=== PATIENT | male | born 1985 | race Caucasian/White ===

== ENCOUNTER 2022-10-12 02:56 | Emergency (ER) | payer SELFPAY ==
[2022-10-12] MEDS ORDERED: NA CHLORIDE 0.9% 1,000 ML ONE (03:13)
[2022-10-12] MEDS ORDERED: ASPIRIN 81 MG CHEWABLE TABLET ONE (03:13)
[2022-10-12] MEDS ORDERED: METOPROLOL TAR 50 MG TAB ONE (03:13)
[2022-10-12 03:28] LABS: Protime INR 1.05
[2022-10-12 03:34] LABS: Absolute Lymphocytes (CBC) 2.3 K/uL (0.7-4.9); Hematocrit 45.1 % (39.6-49.0); Lymphocytes % 23.1 % (15.3-44.8); MCV 87.2 fL (80-100); MPV 7.9 fL (7.6-11.3); RBC Red Blood Cell Count 5.17 M/uL (4.33-5.43)
[2022-10-12 03:49] LABS: Albumin 3.9 g/dL (3.4-5.0); Bilirubin Direct 0.1 mg/dL (0-0.2); Bilirubin Total 0.3 mg/dL (0.2-1.0); Magnesium 1.8 mg/dL (1.6-2.4); Protein, Total 7.7 g/dL (6.4-8.2); Troponin High Sensitivity 6.4 pg/mL (<58.9)
[2022-10-12 03:51] LABS: Potassium 2.6 mmol/L (3.5-5.1)
[2022-10-12] MEDS ORDERED: HYDRALAZINE HCL 20 MG/ML VIAL ONE (03:56)
[2022-10-12] MEDS ORDERED: MORPHINE 4 MG/ML SYR ONE (03:56)
[2022-10-12] MEDS ORDERED: ONDANSETRON 4 MG/2 ML VIAL ONE (03:57)
[2022-10-12] MEDS ORDERED: AMLODIPINE 10 MG TAB ONE (03:57)
[2022-10-12] MEDS ORDERED: HYDRALAZINE HCL 25 MG TABLET ONE (03:57)
[2022-10-12 04:01] LABS: Barbiturates NEGATIVE (NEGATIVE); Benzodiazepines NEGATIVE (NEGATIVE); Cocaine NEGATIVE (NEGATIVE); METHAMPHETAM POSITIVE (NEGATIVE); Methadone NEGATIVE (NEGATIVE); Opiates NEGATIVE (NEGATIVE); Phencyclidine NEGATIVE (NEGATIVE); THC Cannibis NEGATIVE (NEGATIVE)
[2022-10-12] MEDS ORDERED: LORazepam 2 MG/ML VIAL ONE (04:14)
[2022-10-12] MEDS ORDERED: NS KCL 20MEQ 1,000 ML IV ONE (04:15)
[2022-10-12] MEDS ORDERED: FAMOTIDINE 20 MG/2 ML VIAL IV ONE (04:15)
[2022-10-12] MEDS ORDERED: POTASSIUM 25 MEQ EFFERV TAB ONE ×2 (04:15→05:14)
[2022-10-12 04:38] LABS: SARS-CoV-2 Antigen Rapid Res Negative (Negative)
--- NOTE | 2022-10-12 06:22 | EDPHYS ---
Physician Documentation [facility] Name: Mars Contreras Age: 37 yrs Sex: Male : 1985 Arrival Date: 10/12/2022 Time: 02:57 Bed 4 Private MD: ISATU Physician Oscar Dickens HPI: 10/12 03:47 This 37 yrs old Male presents to ER via EMS with complaints of CHEST PAIN AND manpreet HTN. 03:47 The patient or guardian reports chest pain that is located primarily in the substernal manpreet area, anterior chest wall, bilaterally. OUT OF BP MEDS. The pain does not radiate. Onset: The symptoms/episode began/occurred just prior to arrival, today. Associated signs and symptoms: Pertinent positives: dizziness, lightheadedness. The chest pain is described as a pressure, squeezing. Duration: The patient or guardian reports multiple episodes. Modifying factors: The symptoms are alleviated by nothing. the symptoms are aggravated by nothing. Severity of pain: At its worst the pain was mild moderate in the emergency department the pain has improved mildly. Severity of symptoms: At their worst the symptoms were moderate in the emergency department the symptoms have improved mildly. Historical: - Allergies: 03:00 No Known Allergies; lg3 - Home Meds: 03:00 None [Active]; lg3 - PMHx: 03:00 hypertension; Anxiety; lg3 - PSHx: 03:00 None; lg3 - Immunization history:: Adult Immunizations up to date, Client reports receiving the Allen \T\ Allen single-dose vaccine. - Social history:: Smoking status: Patient reports the use of cigarette tobacco products, smokes one pack cigarettes per day. Patient uses alcohol, occasionally. street drugs, marijuana. - Family history:: not pertinent. ROS: 03:47 Constitutional: Negative for fever, chills, and weight loss, Eyes: Negative for injury, manpreet pain, redness, and discharge, ENT: Negative for injury, pain, and discharge, Neck: Negative for injury, pain, and swelling, Cardiovascular: Negative for chest pain, palpitations, and edema, Respiratory: Negative for shortness of breath, cough, wheezing, and pleuritic chest pain. 03:54 Abdomen/GI: Negative for abdominal pain, nausea, vomiting, diarrhea, and constipation, manpreet Back: Negative for injury and pain, : Negative for injury, bleeding, discharge, and swelling, MS/Extremity: Negative for injury and deformity, Skin: Negative for injury, rash, and discoloration, Neuro: Negative for headache, weakness, numbness, tingling, and seizure, Psych: Negative for depression, anxiety, suicide ideation, homicidal ideation, and hallucinations, Allergy/Immunology: Negative for hives, rash, and allergies, Endocrine: Negative for neck swelling, polydipsia, polyuria, polyphagia, and marked weight changes, Hematologic/Lymphatic: Negative for swollen nodes, abnormal bleeding, and unusual bruising. 03:54 Cardiovascular: Positive for chest pain. Exam: 03:54 Constitutional: This is a well developed, well nourished patient who is awake, alert, manpreet and in no acute distress. Head/Face: Normocephalic, atraumatic. Eyes: Pupils equal round and reactive to light, extra-ocular motions intact. Lids and lashes normal. Conjunctiva and sclera are non-icteric and not injected. Cornea within normal limits. Periorbital areas with no swelling, redness, or edema. ENT: Nares patent. No nasal discharge, no septal abnormalities noted. Tympanic membranes are normal and external auditory canals are clear. Oropharynx with no redness, swelling, or masses, exudates, or evidence of obstruction, uvula midline. Mucous membranes moist. Neck: Trachea midline, no thyromegaly or masses palpated, and no cervical lymphadenopathy. Supple, full range of motion without nuchal rigidity, or vertebral point tenderness. No Meningismus. Chest/axilla: Normal chest wall appearance and motion. Nontender with no deformity. No lesions are appreciated. Cardiovascular: Regular rate and rhythm with a normal S1 and S2. No gallops, murmurs, or rubs. Normal PMI, no JVD. No pulse deficits. Respiratory: Lungs have equal breath sounds bilaterally, clear to auscultation and percussion. No rales, rhonchi or wheezes noted. No increased work of breathing, no retractions or nasal flaring. Abdomen/GI: Soft, non-tender, with normal bowel sounds. No distension or tympany. No guarding or rebound. No evidence of tenderness throughout. Back: No spinal tenderness. No costovertebral tenderness. Full range of motion. Male : Normal genitalia with no discharge or lesions. Skin: Warm, dry with normal turgor. Normal color with no rashes, no lesions, and no evidence of cellulitis. MS/ Extremity: Pulses equal, no cyanosis. Neurovascular intact. Full, normal range of motion. Neuro: Awake and alert, GCS 15, oriented to person, place, time, and situation. Cranial nerves II-XII grossly intact. Motor strength 5/5 in all extremities. Sensory grossly intact. Cerebellar exam normal. Normal gait. Psych: Awake, alert, with orientation to person, place and time. Behavior, mood, and affect are within normal limits. 03:54 ECG was reviewed by the Attending Physician. 03:54 Musculoskeletal/extremity: DVT Exam: No signs of deep vein thrombosis. no pain, no swelling, no tenderness, negative Homans' sign noted on exam, no appreciated bluish discoloration, no erythema, no increased warmth. 04:23 ECG was reviewed by the Attending Physician. [facility] Vital Signs: 02:57 BP 178 / 118; Pulse 93; Resp 19 S; Temp 98.6(O); Pulse Ox 100% on R/A; Weight 90.72 kg lg3 (R); Height 5 ft. 10 in. (177.80 cm) (R); Pain 10/10; 03:00 BP 174 / 112; Pulse 88; Resp 18; Pulse Ox 99% ; Pain 0/10; pf1 04:00 BP 167 / 118; Pulse 87; Resp 21; Pulse Ox 100% on 2 lpm NC; Pain 0/10; pf1 04:30 BP 160 / 117; Pulse 80; Resp 19; Pulse Ox 100% on 2 lpm NC; Pain 0/10; pf1 05:00 BP 145 / 114; Pulse 85; Resp 20; Pulse Ox 99% on 2 lpm NC; Pain 0/10; pf1 06:00 BP 141 / 105; Pulse 87; Resp 18; Pulse Ox 97% on R/A; Pain 0/10; pf1 06:15 BP 144 / 101; Pulse 85; Resp 20; Temp 98(TE); Pulse Ox 100% ; Pain 0/10; pf1 02:57 Body Mass Index 28.70 (90.72 kg, 177.80 cm) lg3 MDM: 02:59 Patient medically screened. [facility] 03:55 Differential diagnosis: abnormal EKG, acute myocardial infarction, acute pericarditis, manpreet anxiety, chest wall pain, Cholelithiasis costochondritis, esophagitis, gastritis, gastroesophageal reflux disease (GERD), hiatal hernia, myocarditis, pancreatitis, peptic ulcer disease, pleurisy, pneumonia, pneumothorax, stable angina, unstable angina. HEART Score: History: Moderately Suspicious (1), ECG: Non specific repolarization disturbance / LBTB / PM (1), Age: < or = 45 years (0), Risk Factors: > or = 3 Risk factors for atherosclerotic disease (2), [Hypertension] [Active Smoker] [+ Family HX] [Obesity] Troponin: < or = 1 x Normal Limit (0). TAHIRA Risk Score: 1 - Three or more CAD risk factors, TOTAL SCORE = 1. Data reviewed: vital signs, nurses notes, EMS record, lab test result(s), EKG, radiologic studies, plain films. Consideration of Admission/Observation Patient was admitted/placed on observation. I considered the following discharge prescriptions or medication management in the emergency department Medications were administered in the Emergency Department. See MAR. Test considered but Not performed: Ultrasound GALLBLADDER. Care significantly affected by the following chronic conditions: Hypertension, Obesity. 10/12 03:01 Order name: Basic Metabolic Panel; Complete Time: 04:00 manpreet 10/12 03:01 Order name: CBC with Diff; Complete Time: 04:00 10/12 03:01 Order name: LFT's; Complete Time: 04:00 10/12 03:01 Order name: Magnesium; Complete Time: 04:00 10/12 03:01 Order name: NT PRO-BNP; Complete Time: 04:00 10/12 03:01 Order name: PT-INR; Complete Time: 04:00 10/12 03:01 Order name: Troponin HS; Complete Time: 04:00 10/12 03:01 Order name: XRAY Chest (1 view) [facility] 10/12 03:01 Order name: UDS; Complete Time: 04:04 10/12 03:01 Order name: Lipase; Complete Time: 04:00 10/12 04:03 Order name: SARS RAPID; Complete Time: 04:47 10/12 04:08 Order name: Troponin High Sensitivity: 6PM; Complete Time: 04:52 10/12 06:00 Order name: Troponin High Sensitivity pf1 10/12 03:01 Order name: EKG; Complete Time: 03:02 manpreet 10/12 03:01 Order name: Cardiac monitoring; Complete Time: 03:08 manpreet 10/12 04:08 Order name: EKG; Complete Time: 04:[address] [facility] 10/12 03:01 Order name: EKG - Nurse/Tech; Complete Time: 03:08 manpreet 10/12 03:01 Order name: IV Saline Lock; Complete Time: 03:[address] [facility] 10/12 03:01 Order name: Labs collected and sent; Complete Time: 03:[address] [facility] 10/12 03:01 Order name: O2 Per Protocol; Complete Time: 03:20 manpreet 10/12 03:01 Order name: O2 Sat Monitoring; Complete Time: 03:[address] [facility] 10/12 04:08 Order name: EKG - Nurse/Tech; Complete Time: 04:[address] [facility] 10/12 06:20 Order name: PO challenge: juice; Complete Time: 06:25 manpreet EC:54 Rate is 99 beats/min. Rhythm is regular. QRS [place] is Normal. NC interval is normal. No manpreet Q waves. T waves are Normal. No ST changes noted. Clinical impression: NSR w/ Non-specific ST/T Changes and No evidence of ischemia. Interpreted by me. Reviewed by me. 04:23 Rate is 80 beats/min. Rhythm is regular. QRS [place] is Normal. NC interval is normal. QRS manpreet interval is normal. QT interval is normal. No Q waves. T waves are Normal. No ST changes noted. Clinical impression: NSR w/ Non-specific ST/T Changes, LVH, and No evidence of ischemia. Interpreted by me. Reviewed by me. Administered Medications: 03:53 Discontinued: NS 0.9% 1000 ml IV at 125 ml/hr continuous manpreet 03:10 Drug: Aspirin Chewable Tablet 324 mg Route: PO; pf1 04:00 Follow up: Response: No adverse reaction; Pain is unchanged, physician notified; RASS: pf1 Alert and Calm (0) 03:10 Drug: NS 0.9% 1000 ml Route: IV; Rate: 125 ml/hr; Site: left antecubital; pf1 04:38 Follow up: IV Status: Order to discontinue infusion; IV Intake: 150ml pf1 03:10 Drug: Lopressor (metoprolol TARTRATE) 50 mg Route: PO; pf1 04:00 Follow up: Response: No adverse reaction; Blood pressure is lowered pf1 04:00 Drug: HydrALAZINE 25 mg Route: PO; pf1 04:36 Follow up: Response: No adverse reaction; Blood pressure is lowered pf1 04:00 Drug: Norvasc (amlodipine) 10 mg Route: PO; pf1 04:36 Follow up: Response: No adverse reaction; Blood pressure is lowered pf1 04:01 Drug: hydrALAZINE 10 mg Route: IVP; Site: left antecubital; pf1 04:36 Follow up: Response: No adverse reaction; Blood pressure is lowered pf1 04:02 Drug: morphine 4 mg Route: IVP; Infused Over: 4 mins; Site: left antecubital; pf1 04:38 Follow up: Response: Marked relief of symptoms; Pain is decreased; RASS: Alert and Calm pf1 (0) 04:02 Drug: Zofran (Ondansetron) 4 mg Route: IVP; Site: left antecubital; pf1 04:37 Follow up: Response: No adverse reaction; Nausea is decreased pf1 04:20 Drug: Potassium Effervescent Tablet 50 mEq Route: PO; pf1 04:36 Follow up: Response: No adverse reaction pf1 04:20 Drug: NS 0.9% with KCl 20 mEq/L 1000 ml Route: IV; Rate: 125 ml/hr; Site: left pf1 antecubital; 07:00 Follow up: IV Status: Completed infusion; IV Intake: 300ml pf1 04:25 Drug: Pepcid (famotidine) 20 mg Route: IVP; Site: left antecubital; pf1 05:06 Follow up: Response: No adverse reaction; Marked relief of symptoms pf1 04:25 Drug: Ativan (LORazepam) 1 mg Route: IVP; Site: left antecubital; pf1 05:06 Follow up: Response: No adverse reaction; Marked relief of symptoms; RASS: Alert and pf1 Calm (0) 04:41 CANCELLED (Other Intervention Used): NS 0.9% with KCl 20 mEq/L 1000 ml IV at 25 ml/hr la1 continuous 05:10 Drug: Potassium Effervescent Tablet 50 mEq Route: PO; pf1 05:59 Follow up: Response: No adverse reaction; Marked relief of symptoms pf1 Disposition Summary: 10/12/22 06:21 Discharge Ordered Location: Home manpreet Problem: new manpreet Symptoms: have improved manpreet Condition: Stable manpreet Diagnosis - Essential (primary) hypertension manpreet - Chest pain, unspecified manpreet - Adverse effect of amphetamines manpreet - Abuse of other non-psychoactive substances manpreet - Hypokalemia manpreet Followup: manpreet - With: Private Physician - When: 2 - 3 days - Reason: Recheck today's complaints, Continuance of care, Re-evaluation by your physician Followup: manpreet - With: - When: 2 - 3 days - Reason: Recheck today's complaints, Re-evaluation by your physician Discharge Instructions: - Discharge Summary Sheet manpreet - Nonspecific Chest Pain, Adult manpreet - Hypertension, Adult manpreet - Substance Use Disorder manpreet - Nonspecific Chest Pain, Adult, [id number] manpreet - Potassium Content of Foods manpreet - Hypertension, Adult, [id number] manpreet - Methamphetamines Use Disorder manpreet - How to Take Your Blood Pressure, [id number] manpreet - Aspirin and Your Heart manpreet - Managing Your Hypertension manpreet - Hypokalemia manpreet Forms: - SBAR form pf1 - Medication Reconciliation Form manpreet - Thank You Letter manpreet - Antibiotic Education manpreet - Prescription Opioid Use manpreet Prescriptions: - Lopressor 50 mg Oral Tablet - take 1 tablet by ORAL route every 12 hours; 40 tablet; Refills: 0, Product manpreet Selection Permitted - Norvasc 10 mg Oral Tablet - take 1 tablet by ORAL route once daily; 20 tablet; Refills: 0, Product manpreet Selection Permitted - Pepcid 20 mg Oral Tablet - take 1 tablet by ORAL route every 12 hours for 21 days; 42 tablet; Refills: 0, manpreet Product Selection Permitted - Potassium Chloride 20 meq Oral Packet - take 1 packet by ORAL route every 12 hours 1 packet in 6 (six) ounces of water manpreet or juice; Take after meal; 10 packet; Refills: 0, Product Selection Permitted Signatures: Dispatcher [employer] Oscar Moore MD MD cha Attema, Lee, REFINING MACHINE OPERATOR-C REFINING MACHINE OPERATOR-Cla1 Jacquelyn Lieberman RN RN lg3 Sonja field RN RN pf1 Corrections: (The following items were deleted from the chart) 04:41 03:54 NS 0.9% with KCl 20 mEq/L 1000 ml IV at 25 ml/hr continuous ordered. manpreet la1
--- NOTE | 2022-10-12 06:22 | ER ---
Nurse's Notes [facility] Name: Mars Contreras Age: 37 yrs Sex: Male : 1985 Arrival Date: 10/12/2022 Time: 02:57 Bed 4 Private MD: Diagnosis: Essential (primary) hypertension;Chest pain, unspecified;Adverse effect of amphetamines;Abuse of other non-psychoactive substances;Hypokalemia Presentation: 10/12 02:57 Chief complaint: EMS states: intermittent chest tightness with left arm and leg lg3 numbness starting around 0230. reports SOB. 100% RA. Coronavirus screen: Client denies travel out of the [place] in the last 14 days. At this time, the client does not indicate any symptoms associated with coronavirus-19. Ebola Screen: No symptoms or risks identified at this time. Initial Sepsis Screen: Does the patient meet any 2 criteria? No. Patient's initial sepsis screen is negative. Does the patient have a suspected source of infection? No. Patient's initial sepsis screen is negative. Risk Assessment: Do you want to hurt yourself or someone else? Patient reports no desire to harm self or others. Onset of symptoms was October 12, 2022. 02:57 Method Of Arrival: EMS: [facility] lg3 02:57 Acuity: NORTH 3 lg3 Triage Assessment: 03:00 General: Appears in no apparent distress. uncomfortable, Behavior is cooperative, lg3 anxious. Pain: Complains of pain in chest Pain radiates to left arm and left leg Pain currently is 10 out of 10 on a pain scale. Quality of pain is described as numb. EENT: No deficits noted. No signs and/or symptoms were reported regarding the EENT system. Neuro: No deficits noted. Joe Agitation-Sedation Scale (RASS): 0 - Alert and Calm Level of Consciousness is awake, alert, obeys commands, Oriented to person, place, time, situation. Cardiovascular: Reports chest pain, palpitations, shortness of breath, Capillary refill < 3 seconds Clubbing of nail beds is absent JVD is absent Patient's skin is warm and dry. Respiratory: No deficits noted. Airway is patent Trachea midline Respiratory effort is even, unlabored, Respiratory pattern is regular, symmetrical. GI: No deficits noted. No signs and/or symptoms were reported involving the gastrointestinal system. : No deficits noted. No signs and/or symptoms were reported regarding the genitourinary system. Derm: No deficits noted. No signs and/or symptoms reported regarding the dermatologic system. Skin is intact, is healthy with good turgor, Skin is dry, Skin is normal. Musculoskeletal: Reports numbness in left arm and left leg. Historical: - Allergies: 03:00 No Known Allergies; lg3 - Home Meds: 03:00 None [Active]; lg3 - PMHx: 03:00 hypertension; Anxiety; lg3 - PSHx: 03:00 None; lg3 - Immunization history:: Adult Immunizations up to date, Client reports receiving the Allen \T\ Allen single-dose vaccine. - Social history:: Smoking status: Patient reports the use of cigarette tobacco products, smokes one pack cigarettes per day. Patient uses alcohol, occasionally. street drugs, marijuana. - Family history:: not pertinent. Screenin:03 [facility] ED Fall Risk Assessment (Adult) History of falling in the last 3 months, lg3 including since admission No falls in past 3 months (0 pts). Abuse screen: Denies threats or abuse. Denies injuries from another. Nutritional screening: No deficits noted. Tuberculosis screening: No symptoms or risk factors identified. Assessment: 03:00 General: Appears in no apparent distress. comfortable, well groomed, well developed, pf1 Behavior is calm, cooperative, appropriate for age, quiet. 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 Patient stated was watching TV with onset of symptoms. Neuro: No deficits noted. Level of Consciousness is awake, alert, obeys commands, Oriented to person, place, time, situation. Cardiovascular: Chest pain began 30 minutes prior to arrival. Respiratory: Reports shortness of breath at rest on exertion Airway is patent Trachea midline Respiratory effort is even, unlabored, Respiratory pattern is regular, symmetrical, Breath sounds are clear bilaterally. GI: No deficits noted. Abdomen is flat, non-distended, Bowel sounds present X 4 quads. : No deficits noted. No signs and/or symptoms were reported regarding the genitourinary system. EENT: No deficits noted. No signs and/or symptoms were reported regarding the EENT system. Derm: No deficits noted. No signs and/or symptoms reported regarding the dermatologic system. Musculoskeletal: No deficits noted. 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 03:50 Reassessment: Critical result called from lab, provider notified. vc1 04:00 Reassessment: Patient appears in no apparent distress at this time. No changes from pf1 previously documented assessment. Patient and/or family updated on plan of care and expected duration. Pain level reassessed. Patient is alert, oriented x 3, equal unlabored respirations, skin warm/dry/pink. Patient states symptoms have not improved. 04:46 Reassessment: Patient appears in no apparent distress at this time. No changes from pf1 previously documented assessment. Patient and/or family updated on plan of care and expected duration. Pain level reassessed. Patient is alert, oriented x 3, equal unlabored respirations, skin warm/dry/pink. Patient states symptoms have not improved. 05:16 Reassessment: Patient appears in no apparent distress at this time. No changes from pf1 previously documented assessment. Patient and/or family updated on plan of care and expected duration. Pain level reassessed. Patient is alert, oriented x 3, equal unlabored respirations, skin warm/dry/pink. Patient states feeling better. Patient states symptoms have improved. 06:05 Reassessment: Patient appears in no apparent distress at this time. No changes from pf1 previously documented assessment. Patient and/or family updated on plan of care and expected duration. Pain level reassessed. Patient is alert, oriented x 3, equal unlabored respirations, skin warm/dry/pink. Patient states feeling better. Patient states symptoms have improved. 06:11 Reassessment: Patient appears in no apparent distress at this time. No changes from pf1 previously documented assessment. Patient and/or family updated on plan of care and expected duration. Pain level reassessed. Patient is alert, oriented x 3, equal unlabored respirations, skin warm/dry/pink. Patient states feeling better. Patient states symptoms have improved. Patient denies any chest tightness at this time. Patient C/O bilateral hand and feet tingling and numbness sensation.. Vital Signs: 02:57 BP 178 / 118; Pulse 93; Resp 19 S; Temp 98.6(O); Pulse Ox 100% on R/A; Weight 90.72 kg lg3 (R); Height 5 ft. 10 in. (177.80 cm) (R); Pain 10/10; 03:00 BP 174 / 112; Pulse 88; Resp 18; Pulse Ox 99% ; Pain 0/10; pf1 04:00 BP 167 / 118; Pulse 87; Resp 21; Pulse Ox 100% on 2 lpm NC; Pain 0/10; pf1 04:30 BP 160 / 117; Pulse 80; Resp 19; Pulse Ox 100% on 2 lpm NC; Pain 0/10; pf1 05:00 BP 145 / 114; Pulse 85; Resp 20; Pulse Ox 99% on 2 lpm NC; Pain 0/10; pf1 06:00 BP 141 / 105; Pulse 87; Resp 18; Pulse Ox 97% on R/A; Pain 0/10; pf1 06:15 BP 144 / 101; Pulse 85; Resp 20; Temp 98(TE); Pulse Ox 100% ; Pain 0/10; pf1 02:57 Body Mass Index 28.70 (90.72 kg, 177.80 cm) lg3 ED Course: 02:57 Patient arrived in ED. lg3 02:59 Oscar Dickens MD is Attending Physician. manpreet 03:00 Triage completed. lg3 03:00 Arm band placed on right wrist. lg3 03:00 No provider procedures requiring assistance completed. Maintain EMS IV. Dressing pf1 intact. Good blood return noted. Site clean \T\ dry. Gauge \T\ site: 20 gauge to LAC. 03:03 Patient has correct armband on for positive identification. Placed in gown. Bed in low lg3 position. Call light in reach. Side rails up X2. Client placed on continuous cardiac and pulse oximetry monitoring. NIBP monitoring applied. library monitor on. Door closed. Noise minimized. Warm blanket given. 03:08 Sonja field, RN is Primary Nurse. pf1 03:19 XRAY Chest (1 view) In Process Unspecified. EDMS 03:20 Lipase Sent. pf1 03:21 Basic Metabolic Panel Sent. pf1 03:21 CBC with Diff Sent. pf1 03:21 LFT's Sent. pf1 03:21 Magnesium Sent. pf1 03:21 NT PRO-BNP Sent. pf1 03:21 PT-INR Sent. pf1 03:21 Troponin HS Sent. pf1 03:37 UDS Sent. pf1 04:35 SARS RAPID Sent. pf1 06:21 Kyle Root MD is Referral Physician. manpreet 07:00 IV discontinued, intact, bleeding controlled, No redness/swelling at site. Pressure pf1 dressing applied. Administered Medications: 03:53 Discontinued: NS 0.9% 1000 ml IV at 125 ml/hr continuous manpreet 03:10 Drug: Aspirin Chewable Tablet 324 mg Route: PO; pf1 04:00 Follow up: Response: No adverse reaction; Pain is unchanged, physician notified; RASS: pf1 Alert and Calm (0) 03:10 Drug: NS 0.9% 1000 ml Route: IV; Rate: 125 ml/hr; Site: left antecubital; pf1 04:38 Follow up: IV Status: Order to discontinue infusion; IV Intake: 150ml pf1 03:10 Drug: Lopressor (metoprolol TARTRATE) 50 mg Route: PO; pf1 04:00 Follow up: Response: No adverse reaction; Blood pressure is lowered pf1 04:00 Drug: HydrALAZINE 25 mg Route: PO; pf1 04:36 Follow up: Response: No adverse reaction; Blood pressure is lowered pf1 04:00 Drug: Norvasc (amlodipine) 10 mg Route: PO; pf1 04:36 Follow up: Response: No adverse reaction; Blood pressure is lowered pf1 04:01 Drug: hydrALAZINE 10 mg Route: IVP; Site: left antecubital; pf1 04:36 Follow up: Response: No adverse reaction; Blood pressure is lowered pf1 04:02 Drug: morphine 4 mg Route: IVP; Infused Over: 4 mins; Site: left antecubital; pf1 04:38 Follow up: Response: Marked relief of symptoms; Pain is decreased; RASS: Alert and Calm pf1 (0) 04:02 Drug: Zofran (Ondansetron) 4 mg Route: IVP; Site: left antecubital; pf1 04:37 Follow up: Response: No adverse reaction; Nausea is decreased pf1 04:20 Drug: Potassium Effervescent Tablet 50 mEq Route: PO; pf1 04:36 Follow up: Response: No adverse reaction pf1 04:20 Drug: NS 0.9% with KCl 20 mEq/L 1000 ml Route: IV; Rate: 125 ml/hr; Site: left pf1 antecubital; 07:00 Follow up: IV Status: Completed infusion; IV Intake: 300ml pf1 04:25 Drug: Pepcid (famotidine) 20 mg Route: IVP; Site: left antecubital; pf1 05:06 Follow up: Response: No adverse reaction; Marked relief of symptoms pf1 04:25 Drug: Ativan (LORazepam) 1 mg Route: IVP; Site: left antecubital; pf1 05:06 Follow up: Response: No adverse reaction; Marked relief of symptoms; RASS: Alert and pf1 Calm (0) 04:41 CANCELLED (Other Intervention Used): NS 0.9% with KCl 20 mEq/L 1000 ml IV at 25 ml/hr la1 continuous 05:10 Drug: Potassium Effervescent Tablet 50 mEq Route: PO; pf1 05:59 Follow up: Response: No adverse reaction; Marked relief of symptoms pf1 Medication: 07:00 VIS not applicable for this client. pf1 Intake: 04:38 IV: 150ml; Total: 150ml. pf1 07:00 IV: 300ml; Total: 450ml. pf1 Outcome: 06:21 Discharge ordered by . manpreet 07:00 Discharged to home ambulatory, with family. pf1 07:00 Condition: improved 07:00 Discharge instructions given to patient, Instructed on discharge instructions, follow up and referral plans. medication usage, Demonstrated understanding of instructions, follow-up care, medications, Prescriptions given X 4. 07:01 Patient left the ED. pf1 Signatures: Dispatcher [employer] EDNC Oscar Dickens MD MD cha Gibson, Lacie RN RN lg3 Jerrica Hancock RN RN 1 Sonja field RN RN pf1 Chente Cabrera [facility]
[2022-10-12 07:15] VITALS: BP 144/101; TEMP 98; O2SAT 100
--- NOTE | 2022-10-12 17:31 | EKG ---
Test Date: 2022-10-12 Test Time: 03:01:51 Eligibility Supervisor: RV MEASUREMENT RESULTS: Intervals: Rate: 99 LA: 172 QRSD: 102 QT: 372 QTc: 477 [place]: P: 57 LA: 172 QRS: -39 T: 42 INTERPRETIVE STATEMENTS: Normal sinus rhythm with sinus arrhythmia Left axis deviation Abnormal ECG No previous ECG available for comparison Electronically Signed On 10-12-22 17:30:05 WAFFLE MACHINE OPERATOR by Cj Ross
--- NOTE | 2022-10-12 17:31 | EKG ---
Test Date: 2022-10-12 Test Time: 04:19:34 Fisherman Helper: RV MEASUREMENT RESULTS: Intervals: Rate: 80 MO: 166 QRSD: 100 QT: 382 QTc: 440 [place]: P: 57 MO: 166 QRS: -39 T: 34 INTERPRETIVE STATEMENTS: Normal sinus rhythm Left axis deviation Abnormal ECG Compared to ECG 10/12/2022 03:01:51 Sinus arrhythmia no longer present Electronically Signed On 10-12-22 17:30:04 BLUEPRINT TRIMMER by Cj Ross
--- NOTE | 2022-10-12 21:05 | RAD REPORT ---
EXAM DESCRIPTION: RAD - Chest Single View - 10/12/2022 3:17 am CLINICAL HISTORY: 37 years Male CHEST PAIN COMPARISON: None TECHNIQUE: Noncontrast CT head. This exam was performed according to our departmental dose-optimization program, which includes autom ated exposure control, adjustment of the mA and/or kV according to patient size and/or use of iterati ve reconstruction technique. FINDINGS: Parenchyma: No acute hemorrhage, large territorial infarction, or mass effect. Ventricles and extra-axial spaces: Appropriate for age. Visualized paranasal sinuses: Clear. Mastoid air cells: Clear. Bones: No acute focal abnormality. Additional comment: None. IMPRESSION: No acute intracranial findings. Electronically signed by: Charlotte Bui MD 10/12/2022 3:25 AM ROOM COOLER INSTALLER Due to temporary technical issues with the PACS/Fluency reporting system, reports are being signed by the in house radiologists without review as a courtesy to insure prompt reporting. The interpreting radiologist is fully responsible for the content of the report.
== END 2022-10-12 07:01 | disposition home or self-care (01) ==
LOC: ER 02:56
DX: R07.89 Other chest pain (principal); I10 Essential (primary) hypertension; E87.6 Hypokalemia; T43.625A Adverse effect of amphetamines, initial encounter; F55.8 Abuse of other non-psychoactive substances
CPT/HCPCS: 36415; 71045; 80048; 80076; 80307; 83690; 83735; 83880; 84484; 85025; 85610; 87811; 93005; 96361; 96374; 96375; 99284; J0360; J2405; J3480; J7030